=== PATIENT | male | born 1960 | race Caucasian/White ===

== ENCOUNTER 2021-05-27 14:48 | Emergency (ER) | payer OTHER ==
[2021-05-27 14:55] VITALS: BP 131/80
--- NOTE | 2021-05-27 15:02 | ED Physician Documentation ---
PD HPI UPPER EXT INJURY - Stated complaint Stated Complaint: LEFT FINGER LAC - Chief complaint Chief Complaint: Laceration - History obtained from History obtained from: Patient - History of Present Illness Location: Left, Finger (middle finger at just distal to DIP, palmar aspect.) Type of injury: Laceration (he states a strand of steel wool wire cut into his finger and he pulled at it.) Where injury occurred: Home Timing - onset: Today Timing - details: Abrupt onset, Still present Worsened by: Moving Associated symptoms: Weakness (does not feel strong for flexion.), Numbness (numbness distal to lac on ulnar side tip of finger.) Similar symptoms before: Has not had sx before Recently seen: Not recently seen Review of Systems Constitutional: denies: Fever Nose: denies: Rhinorrhea / runny nose, Congestion Throat: denies: Sore throat Respiratory: denies: Cough Skin: reports: Laceration (s) PD PAST MEDICAL HISTORY - Past Medical History Cardiovascular: None Respiratory: None Endocrine/Autoimmune: None - Present Medications Home Medications: Ambulatory Orders Medication Instructions Recorded Confirmed No Known Home Medications 05/27/21 05/27/21 - Allergies Allergies/Adverse Reactions: Allergies Allergy/AdvReac Type Severity Reaction Status Date / Time No Known Drug Allergies Allergy Verified 05/27/21 14:52 PD ED PE NORMAL - Vitals Vital signs reviewed: Yes - General General: Alert and oriented X 3, No acute distress, Well developed/nourished - Derm Derm: Normal color, Warm and dry - Extremities Extremities: Other (left middle finger with horizontal laceration across palmar just distal to the DIP joint. Extends more to the ulnar side. Numb to touch/sharp distal to lac on ulnar side. Has sensation radial side. He can engage flexion at DIP but it is weaker and does not flex as fully as other fingers.) - Neuro Neuro: Other (the lac appears to go through fatty tissue and I can see the flexor tendon insertion and appears intact, but somewhat hidden so cannot exclude partial lac. ) Results - Vitals Vitals: Vital Signs - 24 hr 05/27/21 14:52 Temperature 37.1 C Heart Rate 64 Respiratory 18 Rate Blood Pressure 131/80 H O2 Saturation 97 Oxygen O2 Source Room air Procedures - Laceration (location) left middle finger palmar DIP Length in cm: 2 Wound type: Linear, Into subcut fat, Clean Neurovascular status: Other (sensory deficit distal to lac on ulnar side and has weaker flexion at DIP.) Anesthesia: Lidocaine 1% Wound preparation: Irrigated copiously NS, Wound explored, To the base Skin layer closure: Nylon, Running, Size #-0 - enter number (4), Sutures - enter # (8) Other: Patient tolerated well, No complications, Dressing applied (and splint), Tetanus UTD PD MEDICAL DECISION MAKING - ED course Complexity details: considered differential (concern for partial tendon lac at FDP insertion. Refer to Ortho at least, or hand surgery if he can get appt. It may just need time for healing splinted and not necessarily repair. ), d/w patient Departure - Departure Disposition: 01 Home, Self Care Clinical Impression: Finger laceration involving tendon Qualifiers: Encounter type: initial encounter Qualified Code(s): S61.219A - Laceration without foreign body of unspecified finger without damage to nail, initial encounter Condition: Stable Record reviewed to determine appropriate education?: Yes Instructions: ED Laceration Hand Follow-Up: Javy Motley MD [Provider Admit Priv/Credential] - RUBEN SALCEDO [Physician No Access] - Comments: It is okay to wash and shower. Clean off the wound twice a day with soap and water, or peroxide and water. Apply some antibiotic ointment to it to keep it moist. Also to watch for signs of infection such as purulence, redness or increasing pain. Return to your primary care or the ER at the specified time for suture removal. Suture removal 10 to 14 days. Gentle use of the finger and keep it splinted during activity to avoid stress on the tendon. I would suggest following up with orthopedics or in particular hand specialist for evaluation. The concern would be if the tendon has some tear to it and is not strengthening well as its healing, it could possibly need repair. I provided the name of a hand specialist up in [facility]. You could also call the [place] [facility] in the [place] [facility] for a follow-up. You could follow-up with our orthopedist Dr. Dubois here in time for the suture removal and he could reassess at as well. He might refer you to a hand specialist if needed though. [facility], [address] [place] [id number]., [place] [id number] 5 Discharge Date/Time: 05/27/21 15:52
[2021-05-27] MEDS ORDERED: BACITRACIN ZINC OINT 1 PACKET TOP STA (15:29)
== END 2021-05-27 15:52 | disposition home or self-care (01) ==
LOC: ED 14:48
DX: S61.219A Laceration without foreign body of unspecified finger without damage to nail, initial encounter (principal); W26.8XXA Contact with other sharp object(s), not elsewhere classified, initial encounter
CPT/HCPCS: 12001; 99283; A9270